=== PATIENT | female | born 1960 | race Caucasian/White ===

== ENCOUNTER 2016-12-02 11:53 | Emergency (ER) | payer BC ==
[2016-12-02] MEDS ORDERED: Tetracaine 0.5% OPTH.SOL 4 ML* 1 DROP BTL ONE (13:02)
[2016-12-02] MEDS ORDERED: BSS OPTH.SOL* BTL ONE (13:02)
[2016-12-02] MEDS ORDERED: Fluorescein Sodium TOPICAL* 1 MG TEST ONE (13:02)
[2016-12-02 13:07] VITALS: BP 188/86
--- NOTE | 2016-12-02 13:35 | UC ---
Eye Complaint HPI - HPI Summary HPI Summary: patient ran into a rough sawn wood shelf with her left eye. she is unable to open the eye. lots of tearing. viusal acuity is affected - History of Current Complaint Chief Complaint: UCEye Stated Complaint: CORNER OF EYE INJURY Time Seen by Provider: 12/02/16 13:13 Hx Obtained From: Patient ?: No Onset/Duration: Sudden Onset, Lasting Hours Timing: Constant Severity Initially: Severe Severity Currently: Severe Location of Injury: Conjunctiva, Sclera Character: Throbbing, Foreign Body Sensation Aggravating Factor(s): Eye Drops, Blinking, Ultraviolet Exposure Alleviating Factor(s): Nothing Associated Signs And Symptoms: Positive: Drainage (Clear), Vision Impairment Left - Allergies/Home Medications Allergies/Adverse Reactions: Allergies Allergy/AdvReac Type Severity Reaction Status Date / Time Adhesive Tape Allergy WELTS Verified 12/02/16 12:57 Tetracycline Allergy Hives Verified 12/02/16 12:57 eye steroids Allergy See Comment Uncoded 12/02/16 12:57 Home Medications: Home Medications Cholecalciferol TAB* [Vitamin D TAB*] 2,000 units PO DAILY 12/02/16 [History Confirmed 12/02/16] Insulin REGULAR(*) 1 units SUBCUT SEE INSTRUCTIONS 12/02/16 [History Confirmed 12/02/16] PMH/Surg Hx/FS Hx/Imm Hx Previously Healthy: Yes - Surgical History Surgical History: Yes Surgery Procedure, Year, and Place: x5 vessell bypass 2016. RIGHT [place] [place]GI[place]. 4 STENTS PLACED MOST RECENT PLACED ON 09/24/2013. RIGHT MIDDLE FINGER. 2 RIGHT SHOULDER SURGERIES. RIGHT BREAST LUMPECTOMY. CATARACTS BILATERAL - Family History Known Family History: Positive: Cardiac Disease, Hypertension - Social History Alcohol Use: Weekly Substance Use Type: None Smoking Status (MU): Former Smoker When Did the Patient Quit Smoking/Using Tobacco: MAR 2014 - Immunization History Most Recent Tetanus Shot: Pt states she does not know at this time but has tetnus with her stents. Review of Systems Constitutional: Negative Skin: Negative Eyes: Blurred Vision, Drainage, Eye Redness, Photophobia ENT: Negative Respiratory: Negative Cardiovascular: Negative Gastrointestinal: Negative Genitourinary: Negative Motor: Negative Neurovascular: Negative Musculoskeletal: Negative Neurological: Negative Is Patient Immunocompromised?: No All Other Systems Reviewed And Are Negative: Yes Physical Exam Triage Information Reviewed: Yes Appearance: Well-Appearing, Well-Nourished, Pain Distress Vital Signs: Initial Vital Signs Temp 99.0 F 12/02/16 12:53 Pulse 76 12/02/16 12:53 Resp 14 12/02/16 12:53 BP 188/86 12/02/16 12:53 Eyes: Positive: Discharge - clear tears, sclera red, FLu Quita exam reveals large area of abraion over the cornea. appears that the fluroescene is tracking deeper into the tissue. tetracaine was applied and visual acuity is noticabily decreased compared to the other eye. she does not wear corrective lenses. mild swelilng of the lower lid noted, smaller abraisions to the medial aspect of the sclera. ENT Exam: Normal Dental Exam: Normal Neck exam: Normal Respiratory Exam: Normal Respiratory: Positive: Chest non-tender, Lungs clear, Normal breath sounds Cardiovascular Exam: Normal Cardiovascular: Positive: RRR, No Murmur, Pulses Normal Abdominal Exam: Normal Abdomen Description: Positive: Nontender, No Organomegaly, Soft Bowel Sounds: Positive: Present Musculoskeletal Exam: Normal Musculoskeletal: Positive: Strength Intact, ROM Intact, No Edema Neurological Exam: Normal Neurological: Positive: Alert, Muscle Tone Normal Psychological Exam: Normal Skin Exam: Normal Eye Complaint Course/Dx - Course Course Of Treatment: hx obtained, exam performed ,meds reviewed, tetraciane applied, fluorescene exam performed, call placed to pts opthamologist for recommendation, Dr Jones was unreachable, Patient not willing to transfer to [place], agreed to D/C to home but advised to be seen at [facility] if symptoms worsen. Dr Quiroz is in agreement with plan - Differential Dx/Diagnosis Differential Diagnosis/HQI/PQRI: Corneal Abrasion, Foreign Body, Periorbital Cellulitis, Orbital Cellulitis Provider Diagnoses: decreased vision due ot injury of left eye. corneal abrasion. possible ulceration of the left cornea Discharge - Discharge Plan Condition: Stable Disposition: HOME Patient Education Materials: Corneal Ulcer (ED) Referrals: Ondina Baker MD [Primary Care Provider] - Additional Instructions: 1. Wear the patch for comfort. 2. Continue with Ibuprofen as needed for pain 3. If you notice any increased pressure, untolerable pain, bleeding, unusal drainage from the eye. any increase in visual disturbance follow up at [facility] otherwise see Dr Jones at your scheduled appointment tomorrow.
== END 2016-12-02 14:06 | disposition home or self-care (01) ==
LOC: UCCORT 11:53
DX: S05.92XA Unspecified injury of left eye and orbit, initial encounter (principal); S05.02XA Injury of conjunctiva and corneal abrasion without foreign body, left eye, initial encounter; X58.XXXA Exposure to other specified factors, initial encounter
CPT/HCPCS: 99211; A9270-GY; G0463